=== PATIENT | male | born 1945 | race Caucasian/White ===

== ENCOUNTER → 2016-12-05 | Outpatient (CLI) | payer OTHER ==
[~2016-12-05] VITALS: Ht 188 cm; Wt 98.9 kg
[~2016-12-05] MED LIST: ASPIR 8181 MG PO; AVODART0.5 MG PO; COZAAR100 MG PO; DICLOFENAC SOD50 M1 PO; DICLOFENAC SODI75 MG PO; FLOMAX0.4 MG PO; HYDROCODONE-AP1 EAC6 PO; HYTRIN 5 M5 MG/1 CAP PO; LIPITOR 20 MG T20 M1 PO; METFORMIN HCL500 MG PO; MICARDIS40 MG; NORCO 5-325 TA1 EACH PO; OMEPRAZOLE40 MG PO; PROSCAR 5MG TABL5 MG PO; PROTONIX40 M1 PO; [UNRECOGNIZED DRUG - REMARK]
--- NOTE | ~2016-12-05 | P ---
[facility] [place] [address] PROCEDURE REPORT Name: CARLA VENTURA [facility] [id number] Admission: 12/05/16 Attend Phys: Maximus Hill MD Discharge: Date of : 43 Report #: [id number] THIS REPORT FOR: //name// CC: Maximus Poe MD DATE OF SERVICE: 12/05/2016 BRIEF HISTORY: The patient is a 71-year-old male with a family history of colon cancer, mother and brother. PREOPERATIVE DIAGNOSIS: Family history of colon cancer, high risk screening colonoscopy. POSTOPERATIVE DIAGNOSES: Moderately severe sigmoid diverticulosis coli with a few scattered proximal colon diverticula, moderate internal hemorrhoids. MEDICATIONS: Deep sedation with propofol per anesthesia. SPECIMEN: None. ESTIMATED BLOOD LOSS: None. PROCEDURE: Colonoscopy to cecum and terminal ileum. FINDINGS: Prior to propofol sedation, procedure of colonoscopy discussed with the patient as well as potential risks and its complications. He indicates he understands and desires to proceed. DESCRIPTION OF PROCEDURE: With the patient in left lateral decubitus position, digital examination was completed which revealed no abnormalities. Subsequently, the [employer] video colonoscope was introduced in the rectum, advanced under direct vision to the cecum. Done with minimal difficulty. The cecum was identified by the ileocecal valve and the appendiceal orifice. I was able to visualize the distal segment of terminal ileum, which is inspected and noted to be unremarkable. At that point, the scope was slowly withdrawn and careful circumferential views obtained including retroflexing the scope in the ascending colon. Upon slow withdrawal of the scope, the prep was noted to be good. The mucosa was normal limits, normal vascular pattern, normal light reflex. No polyps or neoplastic lesions were seen anywhere during this examination. However, there were a few scattered diverticula in the proximal colon and moderate to severe diverticular disease, most in the sigmoid colon without endoscopic evidence of diverticulitis. The scope was withdrawn in the rectum. Upon retroflexion, moderate internal hemorrhoids were seen. Scope was withdrawn. The patient tolerated the procedure well. [address] [address] PROCEDURE REPORT Name: VENTURACARLA Room #: REG [facility] Taylor#: [id number] Admission: 12/05/16 Attend Phys: Maximus Hill MD Discharge: Date of : 43 Report #: [id number] CONDITION OF THE PATIENT UPON DISCHARGE: Following procedure, the patient drowsy, aroused, conversant and will be discharged home when fully ambulatory. INSTRUCTIONS TO THE PATIENT AND FAMILY AT THE TIME OF DISCHARGE: No neoplastic lesions were seen. However, he has 2 first-degree relatives with colon cancer. We will have him return in 3 years. Also noted the prep was much improved over his last prep. He will return to care of Dr. Stephon Poe and return to see me as needed. Last colonoscopy was more than 3 years ago. Withdrawal time from the cecum was 12 minutes. <ELECTRONICALLY SIGNED> By: Maximus Hill MD 12/09/16 1224 0906 1249 Maximus Hill MD /nt
--- NOTE | ~2016-12-05 | P ---
[facility] [place] [address] PROCEDURE REPORT Name: CARLA VENTURA Room #: REG [facility].#: [id number] Admission: 12/05/16 Attend Phys: Maximus Hill MD Discharge: Date of : 43 Report #: [id number] THIS REPORT FOR: //name// CC: Maximus Poe MD DATE OF SERVICE: 12/05/2016 BRIEF HISTORY: The patient is a 71-year-old male who has a history of reflux disease and is on a PPI and complaints of burning in his throat. He also has intermittent solid food dysphagia. PREOPERATIVE DIAGNOSIS: Worsening reflux therapy and solid food dysphagia. POSTOPERATIVE DIAGNOSES: 1. Small hiatus hernia. 2. Modest Schatzki ring. 3. Mild gastritis, erythematous. MEDICATIONS: Deep sedation with propofol per anesthesia. SPECIMEN: None. ESTIMATED BLOOD LOSS: None. PROCEDURE: EGD with dilation. FINDINGS: Prior to propofol sedation, procedure of upper endoscopy discussed with the patient as well potential risks and its complications. He indicates he understands and desires to proceed. DESCRIPTION OF PROCEDURE: With the patient in left lateral decubitus position, the [employer] video endoscope was inserted in the cervical esophagus under direct vision without difficulty. Examination of this organ through its entire length revealed normal esophageal mucosa down the squamocolumnar junction. At the squamocolumnar junction, a mild to modest ring was seen. However, I did not see evidence of ulcers, erosions or Sauer mucosa. Intermittently, a small 2 cm hiatus hernia was seen. Mucosa and hernia was normal. Scope was advanced in the stomach, which was examined on end views as well as retroflexed views. There was erythema in the antrum is noted previous biopsies for H. pylori were negative and those were not repeated today. Upon retroflexion, no mass lesions were seen. A hiatus hernia was seen. The ring was seen as well. The pylorus, duodenal bulb and postbulbar sweep were inspected and noted to be within normal limits. At that point, the scope was slowly withdrawn and careful [facility] [address] [place] [address] PROCEDURE REPORT Name: CARLA VENTURA Room #: REG [facility].#: [id number] Admission: 12/05/16 Attend Phys: Maximus Hill MD Discharge: Date of : 43 Report #: [id number] circumferential views confirmed the above findings. The patient tolerated the procedure well. Following the procedure, he was dilated with passage of 50-Telugu Llamas dilator. There was no resistance. CONDITION OF THE PATIENT UPON DISCHARGE: Following procedure, the patient drowsy and will be discharged home when fully ambulatory. INSTRUCTIONS TO THE PATIENT AND FAMILY AT THE TIME OF DISCHARGE: We will have him increase his PPI to twice daily. He is not sure whether he takes omeprazole or pantoprazole regardless, he should increase to twice daily as needed, reduce back to 1 daily when symptoms controlled. He is return for dilation on an as-needed basis. Proceed with colonoscopy at this time. <ELECTRONICALLY SIGNED> By: Maximus Hill MD 12/09/16 1224 0839 1232 Maximus Hill MD /nt
== END ==
LOC: GI 06:44
DX: Z12.11 Encounter for screening for malignant neoplasm of colon (principal); K64.8 Other hemorrhoids; K57.30 Diverticulosis of large intestine without perforation or abscess without bleeding; K22.2 Esophageal obstruction; K44.9 Diaphragmatic hernia without obstruction or gangrene; K29.60 Other gastritis without bleeding; I10 Essential (primary) hypertension; E78.00 Pure hypercholesterolemia, unspecified; F17.210 Nicotine dependence, cigarettes, uncomplicated; G47.33 Obstructive sleep apnea (adult) (pediatric); E11.9 Type 2 diabetes mellitus without complications; K21.9 Gastro-esophageal reflux disease without esophagitis; Z90.49 Acquired absence of other specified parts of digestive tract; Z85.038 Personal history of other malignant neoplasm of large intestine; Z80.0 Family history of malignant neoplasm of digestive organs
CPT/HCPCS: 43450; G0105

== ENCOUNTER → 2019-03-18 | Outpatient (CLI) | payer OTHER, MEDICARE ==
[~2019-03-18] VITALS: Ht 188 cm; Wt 97.5 kg
[~2019-03-18] MED LIST changes: -HYTRIN 5 M5 MG/1 CAP PO; +LOSARTAN POTASS50 MG PO; +MOBIC15 MG PO; +TERAZOSIN HCL5 MG PO
--- NOTE | 2019-03-18 12:03 | P ---
[facility] [place] [address] PROCEDURE REPORT Name: CARLA VENTURA [facility] [id number] Admission: 03/18/19 ������������������ Attend Phys: Maximus Hill MD Discharge: ������������������ Date of : 43 Report #: [id number] THIS REPORT FOR: //name// CC: Maximus Zarate DO OUTPATIENT UPPER ENDOSCOPY NOTE BRIEF HISTORY: The patient is a 73-year-old male known to me with history of reflux disease and a Schatzki ring with history of dysphagia with previous esophageal dilation. He presents with increasing difficulty with solid food dysphagia. PREOPERATIVE DIAGNOSIS: Solid food dysphagia and reflux disease. POSTOPERATIVE DIAGNOSES: 1. Benign appearing ulceration, distal esophagus. 2. Small hiatus hernia. 3. Diffuse erythematous gastritis. 4. Small amount of retained food material, duodenal bulb. 5. Moderate Schatzki ring. MEDICATIONS: Deep sedation with propofol per anesthesia. SPECIMEN: Biopsies of esophageal ulcers. ESTIMATED BLOOD LOSS: 3 mL. PROCEDURE: EGD with biopsy and Llamas dilation. FINDINGS: Prior to propofol sedation, the procedure of upper endoscopy was reviewed with the patient as well as potential risks and its complications. He indicates he understands and desires to proceed. DESCRIPTION OF PROCEDURE: With the patient in the left lateral decubitus position, the [employer] video endoscope was inserted in the cervical esophagus under direct vision without difficulty. Examination of this organ through its entire length revealed normal esophageal mucosa in the distal esophagus. Interestingly, as we advanced the scope in the distal esophagus, the mucosa was normal until the distal esophagus reached and there was exudate consistent with ulcer disease. At this area, the esophagus was somewhat tortuous and was above the gastroesophageal junction. We very carefully worked the scope through this area and just distal to the area, he is noted to have a moderate Schatzki ring. The mucosa at that level was completely normal without evidence of ulcers or erosions. In addition, there was a small 2-3 cm sliding type hiatus hernia. The mucosa in the hernia was unremarkable. The scope was advanced fully into [facility] [address] [place] [address] PROCEDURE REPORT Name: CARLA VENTURA Room #: REG [facility] Rivas.#: [id number] Admission: 03/18/19 ������������������ Attend Phys: Maximus Hill MD Discharge: ������������������ Date of : 43 Report #: [id number] the stomach, which was examined on end view as well as retroflexed views. There was diffuse erythematous gastritis, which had been noted in the past. Previous biopsies were negative for H. pylori and those were not repeated today. The pylorus, duodenal bulb and postbulbar sweep were inspected. The mucosa was intact. However, there was a small amount of residual food debris in the duodenal bulb. It is noted the patient has diabetes and this may be a manifestation of a component of gastroparesis. At that point, the scope was slowly withdrawn and careful circumferential views were obtained. The distal esophagus was carefully examined. Upon initial advancement of the scope, the exudate came off and there were several raw areas in the distal esophagus. They were fairly vague. They had a smooth and benign appearance. I would wonder if this may represent a pill ulcer as the patient does take meloxicam. Again, it is smooth and has benign appearance and there was no evidence of mass lesions. This area involves a tortuous segment of the esophagus just above the squamocolumnar junction. I do not believe this represents reflux esophagitis. Multiple biopsies were obtained. The scope was withdrawn and the patient tolerated the procedure well. Subsequently, he was dilated with passage of 50-Frisian Llamas dilator as done in the past. The dilator passed without any significant resistance. CONDITION OF THE PATIENT UPON DISCHARGE: Following procedure, the patient was drowsy. He will be discharged home when fully ambulatory. INSTRUCTIONS TO THE PATIENT AND FAMILY AT THE TIME OF DISCHARGE: He takes pantoprazole daily and I will have him continue the pantoprazole. We will follow up on biopsies to make further recommendations. However, I suggest return to see me in followup in about 6 to 8 weeks to monitor his progress. We will also follow up on biopsies obtained today. Also discussed with the patient safe swallowing especially with medications, in particular medication like meloxicam. Also, we will discuss with the patient the possibility he may have a component of gastroparesis related to his diabetes. ��������������������������������������������� <ELECTRONICALLY SIGNED> ���������������������������������������� By: Maximus Hill MD ��������������������������������������������� 03/18/19 1203 0821 0856 Maximus Hill MD /nt
== END | disposition home or self-care (01) ==
LOC: GI 06:55
DX: K22.2 Esophageal obstruction (principal); K29.70 Gastritis, unspecified, without bleeding; K22.10 Ulcer of esophagus without bleeding; K44.9 Diaphragmatic hernia without obstruction or gangrene; K22.8 Other specified diseases of esophagus; E11.43 Type 2 diabetes mellitus with diabetic autonomic (poly)neuropathy; K31.84 Gastroparesis; F17.210 Nicotine dependence, cigarettes, uncomplicated; I10 Essential (primary) hypertension; E78.00 Pure hypercholesterolemia, unspecified; K21.9 Gastro-esophageal reflux disease without esophagitis; Z90.49 Acquired absence of other specified parts of digestive tract; Z88.8 Allergy status to other drugs, medicaments and biological substances; Z79.82 Long term (current) use of aspirin; Z79.84 Long term (current) use of oral hypoglycemic drugs
CPT/HCPCS: 62110; 62900

== ENCOUNTER → 2020-04-12 | Outpatient (CLI) | payer OTHER, MEDICARE | LOC: SJCVC 14:09 | PROVIDERS: ATTEND Internal Medicine Cardiovascular Disease | DX: R94.31 Abnormal electrocardiogram [ECG] [EKG] (principal); I47.1 Supraventricular tachycardia; E78.5 Hyperlipidemia, unspecified; E11.9 Type 2 diabetes mellitus without complications; I10 Essential (primary) hypertension; M15.9 Polyosteoarthritis, unspecified; F17.200 Nicotine dependence, unspecified, uncomplicated; Z79.82 Long term (current) use of aspirin; Z79.899 Other long term (current) drug therapy; Z79.84 Long term (current) use of oral hypoglycemic drugs; Z82.49 Family history of ischemic heart disease and other diseases of the circulatory system ==

== ENCOUNTER → 2020-05-11 | Outpatient (CLI) | payer OTHER, MEDICARE | LOC: SJCVCIMAG 07:42 | PROVIDERS: ATTEND Internal Medicine Cardiovascular Disease | DX: I08.3 Combined rheumatic disorders of mitral, aortic and tricuspid valves (principal); R00.1 Bradycardia, unspecified; I47.1 Supraventricular tachycardia; E11.9 Type 2 diabetes mellitus without complications; Z79.82 Long term (current) use of aspirin; Z79.899 Other long term (current) drug therapy; Z88.8 Allergy status to other drugs, medicaments and biological substances ==

== ENCOUNTER → 2020-05-17 | Outpatient (CLI) | payer OTHER, MEDICARE | LOC: SJCVC 16:12 | PROVIDERS: ATTEND Internal Medicine Cardiovascular Disease | DX: I47.1 Supraventricular tachycardia (principal); I49.1 Atrial premature depolarization; I10 Essential (primary) hypertension; F17.200 Nicotine dependence, unspecified, uncomplicated; Z79.899 Other long term (current) drug therapy ==

== ENCOUNTER → 2020-11-20 | Outpatient (CLI) | payer OTHER, MEDICARE | LOC: SJCVC 14:24 | PROVIDERS: ATTEND Internal Medicine Cardiovascular Disease | DX: R94.31 Abnormal electrocardiogram [ECG] [EKG] (principal); R00.1 Bradycardia, unspecified; I49.8 Other specified cardiac arrhythmias; I47.1 Supraventricular tachycardia; F17.210 Nicotine dependence, cigarettes, uncomplicated; E78.5 Hyperlipidemia, unspecified; E11.9 Type 2 diabetes mellitus without complications; N40.0 Benign prostatic hyperplasia without lower urinary tract symptoms; I10 Essential (primary) hypertension; Z88.8 Allergy status to other drugs, medicaments and biological substances; Z79.82 Long term (current) use of aspirin; Z79.899 Other long term (current) drug therapy; Z79.84 Long term (current) use of oral hypoglycemic drugs ==